=== PATIENT | male | born 1970 | race Caucasian/White ===

== ENCOUNTER 2024-09-09 15:56 | Inpatient (IN) | payer OTHER ==
[2024-09-09 17:41] VITALS: BMI 27.4
[2024-09-09] MEDS ORDERED: NICOTINE POLACRILEX 2 MG LOZENGE BC PRN (18:02)
[2024-09-09] MEDS ORDERED: IBUPROFEN 400 MG TABLET (FP) PO PRN (18:02)
[2024-09-09] MEDS ORDERED: MAGNESIUM HYDROX 2400MG/30ML ORAL SUSPENSION 30 ML CUP PO PRN (18:02)
[2024-09-09] MEDS ORDERED: BENZONATATE 200 MG CAPSULE PO PRN (18:02)
[2024-09-09] MEDS ORDERED: ACETAMINOPHEN 325 MG TABLET (FP) PO PRN (18:02)
[2024-09-09] MEDS ORDERED: POLYETHYLENE GLYCOL (HEALTHYLAX) 3350 17 GM PACKET PO PRN (18:02)
[2024-09-09] MEDS ORDERED: guaiFENesin 600 MG TABLET.ER (FP) PO PRN (18:02)
[2024-09-09] MEDS ORDERED: NICOTINE POLACRILEX 2 MG GUM BUC PRN (18:02)
[2024-09-09] MEDS ORDERED: BENZOCAINE/MENTHOL (CHLORASEPTIC ) LOZENGE MM PRN (18:02)
[2024-09-09] MEDS ORDERED: P-EPHED 60MG/TRIPROLIDI 2.5MG TABLET PO PRN (18:02)
[2024-09-09] MEDS ORDERED: LOPERAMIDE HCL 2 MG CAPSULE PO PRN (18:02)
[2024-09-09] MEDS ORDERED: NALOXONE (NARCAN) HCL 4 MG/0.1 ML SPRAY NS PRN (18:02)
[2024-09-09] MEDS ORDERED: TUBERCULIN PPD 5 TU/0.1ML VIAL ID ONE (21:34)
[2024-09-09] MEDS: MELATONIN 5 MG TABLETS PO SCH (21:35)
[2024-09-09] MEDS: TUBERCULIN PPD 5 TU/0.1ML SYRINGE (IN PATIENT USE ONLY) ID ONE (21:35)
[2024-09-09] MEDS: THIAMINE 100 MG TABLET PO SCH (21:35)
[2024-09-10] MEDS ORDERED: methaDONE HCL 10 MG TABLET PO SCH (09:00)
[2024-09-10] MEDS: PRENATAL VITAMINS W/ FOLIC ACID TABLET (FP) PO SCH (10:17)
[2024-09-10] MEDS: methaDONE 40 MG, methaDONE 10 MG PO SCH (10:17)
[2024-09-10] MEDS: NICOTINE 7 MG/24 HOURS TOPICAL PATCH TD SCH (10:18)
[2024-09-10 11:11] LABS: HEMATOCRIT 42.5 % (35.4-49); HEMOGLOBIN 13.5 GM/dL (11.7-16.9); MCH 22.4 pg (25.7-33.7); MCHC 31.8 g/dl (32.0-35.9); MEAN CELL VOLUME 70.3 fl (80-96); MEAN PLT VOLUME 8.6 fl (7.5-11.1); PLATELET COUNT 226 10^3/uL (134-434); RBC 6.05 M/mm3 (4.00-5.60); RDW 21.3 % (11.9-15.9); WHITE BLOOD COUNT 6.2 K/mm3 (4.0-10.0)
[2024-09-10 11:59] LABS: POTASSIUM 4.2 mmol/L (3.5-5.1)
[2024-09-10 12:09] LABS: CALCIUM 9.4 mg/dL (8.5-10.1)
[2024-09-10 12:10] LABS: ALBUMIN 3.6 g/dl (3.4-5.0); BLOOD UREA NITROGEN 8.3 mg/dL (7-18)
[2024-09-10 12:12] LABS: CREATININE 0.7 mg/dL (0.55-1.3)
[2024-09-10 12:14] LABS: BILIRUBIN,TOTAL 0.2 mg/dL (0.2-1); TOT PROT 7.3 g/dl (6.4-8.2)
[2024-09-10] MEDS: FLU VACCINE (FLULAVAL) PF 45 MCG/0.5 ML SYRINGE 2024-2025 IM ONE (12:56)
[2024-09-10] MEDS: PNEUMOC 20-VAL CONJ-DIP CRM/PF 0.5 ML SYRINGE IM ONE (13:00)
[2024-09-10 13:51] LABS: PH,URINE 6.5 (5.0-8.0); URINE APPEARANCE CLEAR; URINE BILIRUBIN NEGATIVE (NEGATIVE); URINE COLOR YELLOW; URINE GLUCOSE (UA) NEGATIVE (NEGATIVE); URINE KETONE NEGATIVE (NEGATIVE); URINE LEUK ESTERASE NEGATIVE (NEGATIVE); URINE NITRITE NEGATIVE (NEGATIVE); URINE PROTEIN NEGATIVE (NEGATIVE); URINE UROBILINOGEN 0.2 mg/dL (0.2-1.0)
[2024-09-10] MEDS: BACLOFEN 10 MG TABLET (FP) PO SCH (21:39)
[2024-09-11] MEDS: methaDONE 40 MG, methaDONE 20 MG PO SCH (05:41)
[2024-09-11] MEDS ORDERED: methaDONE HCL 40 MG DISPERSABLE TABLET PO SCH (06:00)
[2024-09-11] MEDS: IBUPROFEN 600 MG TABLET (FP) PO PRN (10:14)
[2024-09-11] MEDS: NICOTINE 21 MG/24 HOURS TOPICAL PATCH TD SCH (10:14)
[2024-09-12] MEDS: MAG HYDROX/AL HYDROX/SIMETH 30 ML UNIT-DOSE CUP PO PRN (23:39)
[2024-09-14] MEDS ORDERED: methaDONE HCL 10 MG TABLET PO SCH (06:00)
[2024-09-14] MEDS: methaDONE 40 MG, methaDONE 30 MG PO SCH (06:39)
[2024-09-19] MEDS: GABAPENTIN 300 MG CAPSULE PO SCH (17:02)
[2024-09-19 20:36] VITALS: RESP 17; TEMP 97.7
[2024-09-20] MEDS: methaDONE HCL 40 MG DISPERSABLE TABLET PO SCH (06:02)
[2024-09-20 07:14] VITALS: BP 110/65; PULSE 64
== END 2024-09-20 10:26 | disposition left against medical advice (07) | DRG 772 ==
LOC: YASAS 15:56 → Y3W 20:48
PROVIDERS: ADMIT Psychiatry & Neurology Pain Medicine; ATTEND Psychiatry & Neurology Pain Medicine
PROC: HZ42ZZZ Group Counseling for Substance Abuse Treatment, Cognitive-Behavioral (ICD-10-PCS; principal; 2024-09-09)
DX: F11.20 Opioid dependence, uncomplicated (principal); F14.20 Cocaine dependence, uncomplicated; F13.10 Sedative, hypnotic or anxiolytic abuse, uncomplicated; F17.210 Nicotine dependence, cigarettes, uncomplicated; F91.8 Other conduct disorders; Z91.199 Patient's noncompliance with other medical treatment and regimen due to unspecified reason; Z86.79 Personal history of other diseases of the circulatory system; Z86.59 Personal history of other mental and behavioral disorders
CPT/HCPCS: 36415; 80053; 81003; 85027; 86780; 90656; 90677; 93005; 93010; G0008; G0009; J0475